=== PATIENT | female | born 1965 | race Caucasian/White ===

== ENCOUNTER 2016-08-27 17:09 | Emergency (ER) | payer BC ==
[2016-08-27 17:18] VITALS: BP 141/83; PULSE 79; TEMP 98.2; BMI 29.0
[2016-08-27] MEDS ORDERED: PHENAZOPYRIDINE HCL 100 MG TABLET (FP) PO ONE (19:42)
[2016-08-27] MEDS ORDERED: PHENAZOPYRIDINE HCL 100 MG TABLET (FP) ONE (20:04)
[2016-08-27 20:05] LABS: URINE APPEARANCE CLEAR; URINE BILIRUBIN NEGATIVE (NEGATIVE); URINE COLOR YELLOW; URINE GLUCOSE (UA) NEGATIVE (NEGATIVE); URINE KETONE TRACE (NEGATIVE); URINE NITRITE POSITIVE (NEGATIVE); URINE PROTEIN NEGATIVE (NEGATIVE); URINE UROBILINOGEN NEGATIVE E.U./dl (0.2-1.0)
[2016-08-27 20:09] LABS: URINE BLOOD 2+ (NEGATIVE); URINE LEUK ESTERASE TRACE (NEGATIVE)
[2016-08-27 20:10] LABS: URINE BACTERIA MODERATE /hpf (NONE SEEN); URINE MUCUS RARE; URINE RBC 6 /hpf (0-3); URINE WBC 8 /hpf (3-5)
[2016-08-27] MEDS ORDERED: NITROFURANTOIN MACROCRYSTAL 50 MG CAPSULE (FP) ONE (20:24)
--- NOTE | 2016-08-27 20:24 | PDOC ---
History of Present Illness - General Chief Complaint: Pain Stated Complaint: BACK PAIN Time Seen by Provider: 08/27/16 19:23 - History of Present Illness Initial Comments: 08/27/16 20:21 CHIEF COMPLAINT: b/l flank pain HISTORY OF PRESENT ILLNESS: 51 yo F with hx of UTIs presents to ED with b/l pain to back radiating down left groin x 1 week. Patient reports urinary frequency and dysuria. Denies hematuria. Patient reports the pain is worse when she walks. No recent travel or sick contacts. PAST MEDICAL HISTORY: Denies past medical history FAMILY HISTORY: Denies SOCIAL HISTORY: Denies tobacco, alcohol, illicit drug use. SURGICAL HISTORY: Denies ALLERGIES: No known drug allergies REVIEW OF SYSTEMS General/Constitutional: Denies fever or chills. Denies weakness, weight change. HEENT: Denies change in vision. Denies ear pain or discharge. Denies sore throat. Cardiovascular: Denies chest pain or shortness of breath. Respiratory: Denies cough, wheezing, or hemoptysis. Gastrointestinal: Denies nausea, vomiting, diarrhea or constipation. Denies rectal bleeding. Genitourinary: Dysuria, frequency. Musculoskeletal: Denies joint or muscle swelling or pain. Denies neck or back pain. Skin and breasts: Denies rash or easy bruising. PHYSICAL EXAM General Appearance: Well-appearing, appropriately dressed. No apparent distress. HEENT: EOMI, PERRLA, normal ENT inspection, normal voice, TMs normal, pharynx normal. No conjunctival pallor. No photophobia, scleral icterus. Neck: Supple. Trachea midline. No tenderness, rigidity, carotid bruit, stridor , lymphadenopathy, or thyromegaly. Respiratory/Chest: Lungs CTAB. Cardiovascular: RRR. S1, S2. Gastrointestinal/Abdominal: Normal bowel sounds. Abdomen soft, non-distended. No tenderness or rebound tenderness. No organomegaly, pulsatile mass, guarding , hernia, hepatomegaly, splenomegaly. Musculoskeletal/Extremities: B/L CVA tenderness. Normal inspection. FROM of all extremities, normal capillary refill. Pelvis Stable. No CVA tenderness. No tenderness to extremities, pedal edema, swelling, erythema or deformity. Integumentary: Appropriate color, dry, warm. 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 Fully oriented, alert. Appropriate mood/affect. Motor strength 5/5. No appreciable EOM palsy, facial droop or sensory deficit. Past History - Past Medical History Allergies/Adverse Reactions: Allergies Allergy/AdvReac Type Severity Reaction Status Date / Time No Known Allergies Allergy Verified 08/27/16 17:18 Home Medications: Ambulatory Orders Nitrofurantoin Monohyd/M-Cryst [Macrobid -] 100 mg PO BID #14 capsule 08/27/16 Phenazopyridine HCl [Pyridium] 100 mg PO BID PRN #14 tablet 08/27/16 Other medical history: NONE - Reproductive History Is Patient Now?: No - Psycho/Social/Smoking Cessation Hx Anxiety: No Suicidal Ideation: No Smoking Status: No Smoking History: Never smoked Number of Cigarettes Smoked Daily: 0 Hx Alcohol Use: No Drug/Substance Use Hx: No Substance Use Type: None *Physical Exam - Vital Signs Last Vital Signs Temp Pulse Resp BP Pulse Ox 98.2 F 79 20 141/83 99 08/27/16 17:15 08/27/16 17:15 08/27/16 17:15 08/27/16 17:15 08/27/16 17:15 ED Treatment Course - ADDITIONAL ORDERS Additional order review: Laboratory Results 08/27/16 19:57 Urine Color Yellow Urine Appearance Clear Urine pH 5.0 Urine Protein Negative Urine Glucose (UA) Negative Urine Ketones Trace H Urine Blood 2+ H Urine Nitrite Positive Urine Bilirubin Negative Urine Urobilinogen Negative Ur Leukocyte Esterase Trace H D Urine RBC 6 Urine WBC 8 Ur Epithelial Cells Rare Urine Bacteria Moderate Urine Mucus Rare Urine HCG, Qual Negative - Medications Given in the ED: ED Medications Discontinued Medications Generic Name Dose Route Start Last Admin Trade Name Freq PRN Reason Stop Dose Admin Phenazopyridine HCl 200 mg 08/27/16 19:42 08/27/16 20:07 Pyridium - PO 08/27/16 19:43 200 mg ONCE ONE Administration Medical Decision Making - Medical Decision Making 08/27/16 20:23 51 yo F with hx of UTIs presents to ED with b/l pain to back radiating down left groin x 1 week. -UA, UCx, Upreg -Pyridium po UA positive for nitrites, 8 WBC. Will treat for UTI. *DC/Admit/Observation/Transfer Diagnosis at time of Disposition: UTI (urinary tract infection) Qualifiers: Urinary tract infection type: site unspecified Hematuria presence: without hematuria Qualified Code(s): N39.0 - Urinary tract infection, site not specified - Discharge Dispostion Disposition: HOME Condition at time of disposition: Stable Admit: No - Prescriptions Prescriptions: Nitrofurantoin Monohyd/M-Cryst [Macrobid -] 100 mg PO BID #14 capsule Phenazopyridine HCl [Pyridium] 100 mg PO BID PRN #14 tablet PRN Reason: Pain - Referrals Referrals: Usman Perrin MD [Primary Care Provider] - - Patient Instructions Printed Discharge Instructions: DI for Urinary Tract Infection (UTI) Additional Instructions: Please take medications as prescribed and complete the entire course of antibiotics. Drink plenty of fluids and stay hydrated. If you experience fever , nausea, vomiting, diarrhea, any new or worsening symptoms, please return to the ER. - Post Discharge Activity
[2016-08-27] MEDS ORDERED: NITROFURANTOIN MACROCRYSTAL 50 MG CAPSULE (FP) PO SCH (20:30)
== END 2016-08-27 20:27 | disposition home or self-care (01) ==
LOC: JER 17:09
DX: N39.0 Urinary tract infection, site not specified (principal)
CPT/HCPCS: 81003; 81015; 84703; 87086; 87186; 99283-25

== ENCOUNTER 2017-04-15 13:02 | Emergency (ER) | payer BC ==
[2017-04-15 13:08] VITALS: BP 155/85; PULSE 97; TEMP 97.9; BMI 29.3
--- NOTE | 2017-04-15 15:21 | PDOC ---
History of Present Illness - General Chief Complaint: Injury Stated Complaint: BRUISE/ RT SIDE OF FACE Time Seen by Provider: 04/15/17 15:09 History Source: Patient Exam Limitations: No Limitations - History of Present Illness Initial Comments: 04/15/17 15:22 Patient states fell a few days ago, and while trying to absorb the swelling and the bruise made a home recipe with multiple ingredients including apple cider vinegar and a few of the kitchen items. Placed that poultice on face and incurred a chemical burn with swelling and blistering to area. Patient denies fever, denies is painful, no drainage. Occurred: reports: yesterday Severity: reports: mild Pain Location: reports: face Modifying Factors: improves with: None Associated Symptoms (Fall): denies symptoms Past History - Travel Traveled outside of the country in the last 30 days: No Close contact w/someone who was outside of country & ill: No - Past Medical History Allergies/Adverse Reactions: Allergies Allergy/AdvReac Type Severity Reaction Status Date / Time No Known Allergies Allergy Verified 08/27/16 17:18 Home Medications: Ambulatory Orders NK [No Known Home Medication] 04/15/17 COPD: No - Suicide/Smoking/Psychosocial Hx Smoking Status: No Smoking History: Never smoked Number of Cigarettes Smoked Daily: 0 Information on smoking cessation initiated: No Hx Alcohol Use: No Drug/Substance Use Hx: No Substance Use Type: None Trauma Specific PMHX - Complaint Specific PMHX Back Injury: No Neck Injury: No Review of Systems - Review of Systems Able to Perform ROS?: Yes Is the patient limited Russian proficient: Yes Constitutional: Yes: Symptoms Reported, See HPI. No: Fever HEENTM: Yes: Symptoms Reported, See HPI Respiratory: No: Symptoms reported Musculoskeletal: Yes: See HPI. No: Symptoms Reported Integumentary: Yes: Symptoms Reported, See HPI, Bruising, Erythema, Flushing, Rash All Other Systems: Reviewed and Negative *Physical Exam - Vital Signs Last Vital Signs Temp Pulse Resp BP Pulse Ox 97.9 F 97 H 19 155/85 99 04/15/17 13:05 04/15/17 13:05 04/15/17 13:05 04/15/17 13:05 04/15/17 13:05 - Physical Exam General Appearance: Yes: Nourished, Appropriately Dressed, Apparent Distress HEENT: positive: JAIME, Normal ENT Inspection (no swelling,), TMs Normal, Pharynx Normal, Rhinorrhea Neck: positive: Supple. negative: Tender Respiratory/Chest: positive: Lungs Clear Gastrointestinal/Abdominal: positive: Soft. 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 Recommended no treatment or creams until symptoms resolve. No evidence of angioedema or past superficial burn *DC/Admit/Observation/Transfer Diagnosis at time of Disposition: Contact dermatitis Qualifiers: Contact dermatitis type: irritant Contact dermatitis trigger: unspecified trigger Qualified Code(s): L24.9 - Irritant contact dermatitis, unspecified cause - Discharge Dispostion Disposition: HOME Condition at time of disposition: Stable Admit: No - Referrals Referrals: Usman Perrin MD [Primary Care Provider] - - Patient Instructions Printed Discharge Instructions: DI for Contact Dermatitis Additional Instructions: Avoid any other lotions, creams or solutions to face until healed. Only cream may recommend would be Vaseline to keep skin moisturized - Post Discharge Activity Forms/Work/School Notes: Back to Work
== END 2017-04-15 15:26 | disposition home or self-care (01) ==
LOC: JERFT 13:02
DX: L24.9 Irritant contact dermatitis, unspecified cause (principal)
CPT/HCPCS: 99281-25

== ENCOUNTER 2018-08-07 11:31 | Emergency (ER) | payer BC | END 2018-08-07 13:05 | disposition home or self-care (01) | LOC: JER 11:31 → JERFT 13:05 ==